=== PATIENT | male | born 1965 | race Caucasian/White ===

== ENCOUNTER 2021-10-17 11:52 | Emergency (ER) | payer OTHER, SELFPAY ==
--- NOTE | 2021-10-17 12:00 | ED.OVERDOSE ---
HPI - Overdose General Chief Complaint: Overdose Stated Complaint: OVERDOSE Time Seen by Provider: 10/17/21 11:58 Source: EMS Mode of arrival: EMS Limitations: language barrier History of Present Illness HPI Narrative: patient found unresponsive after fentanyl crack and cocaine. Bystanders gave him intranasal narcan x 3. complaint: accidental overdose Related Data Allergies Allergy/AdvReac Type Severity Reaction Status Date / Time No Known Allergies Allergy Unverified 12/04/19 17:10 Review of Systems Constitutional: Constitutional: Reports no additional constitutional complaints Eyes: Eyes: Reports no additional eye complaints ENT: Denies dizziness Cardiovascular: Cardiovascular: Reports no additional cardiovascular complaints Respiratory: Respiratory: Reports as per HPI Gastrointestinal: Gastrointestinal: Reports no additional gastrointestinal complaints Musculoskeletal: Musculoskeletal: Reports no additional musculoskeletal complaints Integumentary/Breasts: Skin/Breast: Denies rash Neurologic: Reports system reviewed and no additional complaints, except as documented, Denies dizziness and Denies Sensory deficit (Neuro) Psychiatric: Psychiatric: Denies anxiety PMFSH Social History Social History Advance Directives: No Advance Directives Information Provided: No Physical Exam Vital Signs: Vital Signs: Last Vital Signs Pulse 88 10/17/21 12:02 Resp 14 10/17/21 12:02 BP 104/77 10/17/21 12:02 Pulse Ox 96 10/17/21 12:02 O2 Del Method 10/17/21 12:02 BMI result Body Mass Index 29.0 Const: Other: yawning with chills Nutritional Appearance: average body habitus Orientation/consciousness: oriented to person and patient oriented x3 Limitations: no limitations HEENT: Head: Yes normal to inspection Ears: external ears normal General nose exam: Normal external nose present Mouth: Normal oral and palatal mucosa present and oropharynx normal Throat: Yes posterior oropharynx normal Eyes: General: appearance normal, both eyes and all related structures Neck: Other: supple Neck: Yes normal visual inspection Chest: Chest palpation & inspection: normal inspection of the chest Resp: Auscultation: clear to auscultation bilaterally Cardio: Jugular venous distension: no JVD Rate: regular rate Rhythm: regular rhythm Heart sounds: S1 normal heart sound present and S2 normal heart sound present GI: Inspection: Yes normal to inspection Palpation (GI): Soft to palpation, nontender and No hepatosplenomegaly present Auscultation: normal bowel sounds : General: Yes no CVA tenderness Back/Spine/Pelvis: Back: no CVA tenderness Skin: General skin exam: no rashes or lesions noted Neuro: General: oriented to person and patient oriented x3 Cranial nerves: Yes CN's II-XII intact bilaterally Motor exam (neuro): 5/5 motor strength present throughout Sensory Exam: No Sensory deficit (Neuro) Extrem: General: Yes normal to inspection Psych: Appearance: grossly normal Course Reevaluation(s) Reevaluation #1: Seen and refused detox, will dc home Time: 15:31 Discharge Plan Discharge Clinical Impression: Drug overdose Patient Disposition: Home, Self-Care Instructions: Adult Overdose (ED) Additional Instructions: follow up with detox and stop using narcotics Referrals: Dell Curtis MD [Primary Care Provider] - 1 week
[2021-10-17 12:02] VITALS: BP 104/77; BP 118/78; PULSE 100; PULSE 88; RESP 14; O2SAT 96; BMI 29.0
--- NOTE | 2021-10-17 12:19 | PC.NURSE ---
Security called to bedside. Pt changed to hospital gown. Belongings sent to .
--- NOTE | 2021-10-17 16:11 | HO.SUDE ---
This specification writer met w/ pt. Pt alert and oriented. Pt states lives in [place], att[facility] in [place], has not been to MTD maintenance in 3 days. Pt states was on 26mg daily. Pt states today used IV 2 bags heroin, 1 bag DIANA. Pt states treatment history of detox many times, Suboxone for 4 years. Pt states has been using since 20 years old, w/ 40 overdoses in the past. Pt states sometimes received narcan during overdose, typically does not go to hospital post overdose. Pt states is on prescription BZO from psychiatrist. This specification writer offered treatment options and resources, pt states not interested at this time. This specification writer and pt discussed the benefits of MTD maintenance. Pt states plans to f/u w/ methadone clinic tomorrow. Harm reduction, opiate overdose prevention, narcan training reviewed. Opportunity for questions. Pt verbalized understanding.
== END 2021-10-17 15:48 | disposition home or self-care (01) ==
PROVIDERS: Emergency Provider Emergency Medicine; PCP Internal Medicine
DX: T40.5X1A Poisoning by cocaine, accidental (unintentional), initial encounter (principal); F14.19 Cocaine abuse with unspecified cocaine-induced disorder; Y92.9 Unspecified place or not applicable
CPT/HCPCS: 99284

== ENCOUNTER 2022-01-20 14:43 | Emergency (ER) | payer OTHER, SELFPAY ==
--- NOTE | 2022-01-20 15:02 | PC.NURSE ---
[facility] called, declined case. #[id number]
--- NOTE | 2022-01-20 15:09 | ED_ITS ---
HPI - CPR General Chief Complaint: Cardiac Arrest/CPR Stated Complaint: CARDIAC ARREST,?OD Time Seen by Provider: 01/20/22 14:49 Source: EMS Mode of arrival: EMS Limitations: other (ongoing CPR) History of Present Illness HPI narrative: 56 yo male with known substance abuse found down behind a building unknown downtime - drug paraphernalia near him per EMS there was bystander CPR - asytole for duration of EMS call 35 min, intubated, no shocks advised, 3 to 4 doses of narcan given in field complaint: found unresponsive Onset (ago): unknown Place: street Bystander CPR performed: Yes AED applied by bystander/first aid director: No Shock advised: No Initial findings in the field: unresponsive, no pulse and other rhythm (asystole) ROSC in the field: No Associated injuries: No Associated symptoms: other (found with drug paraphernalia) Known history of: drug abuse Treatments prior to arrival: intubation, chest compressions and epinephrine mgs # (5) Related Data Allergies Allergy/AdvReac Type Severity Reaction Status Date / Time No Known Allergies Allergy Unverified 12/04/19 17:10 Review of Systems Review of Systems: ROS unable to be obtained due to ongoing CPR [facility] Past Medical History Medical History (Updated 01/20/22 @ 15:10 by Nadia Macias DO) Drug abuse Social History Social History (Updated 01/20/22 @ 15:11 by Nadia Macias DO) Patient Tobacco Use Status: Tobacco use Unknown Substance Use Type: Crack/Cocaine and Heroin Advance Directives: No Advance Directives Information Provided: No Physical Exam Vital Signs: Appearance: unresponsive, ongoing CPR, no response to pain Eyes: fixed dilated pupils ENT: Pharynx normal. Neck: Normal inspection. Neck supple. CVS: absent heart sounds, with compressions good femoral pulse felt Respiratory: No respiratory distress. Breath sounds normal. Abdomen: Soft and nontender. atraumatic Skin: Skin dusky and pale, scars noted on both UE Extremities: No lower extremity edema. Neuro: no response to pain, no movements, unresponsive Course Course Course Narrative: asystole for at least 35 minutes with EMS but unknown downtime - no ROSC in field, no cardiac activity on bedside US after 40 min of CPR at this time [place]uscitative [place] [id number] accepted to [facility] [id number] Reyna Carrillo MDM - Cardiac Arrest/CPR MDM Narrative Medical decision making narrative: 56 yo male with hx of substance abuse here with cardiac arrest x at least 40 minutes without ROSC and remains in asystole - cycle of CPR in ED, BS 60, no cardiac activity on bedside US, asystole for 40 minutes, given prolonged cardiac arrest without response - time of 1448pm. Will call ME given concern for overdose. Procedures Procedure Narrative Procedure Narrative: bedside US 1448 - absent cardiac activity noted on bedside US, asystole on monitor Discharge Plan Discharge Clinical Impression: Cardiac arrest Patient Disposition: Date/Time: 01/20/22 14:48
--- NOTE | 2022-01-20 15:44 | PC.NURSE ---
@[phone] CALL PLACED TO [facility] [phone] @ THE REQUEST OF DR JOSIAH RAMIREZ ANSWERS, TAKES CALL BACK INFO AND ASSURE ME SOMEONE WILL CALL BACK SOON @[phone] JAMES FROM [facility] CALLS US BACK, TAKES PT INFO THEN ASKS TO SPEAK WITH DR JOSIAH RAHMAN TAKES OVER CALL RIGHT AWAY
--- NOTE | 2022-01-20 16:05 | PC.NURSE ---
TIME OF 1880 UT CASE # [id number]
--- NOTE | 2022-01-20 16:09 | PC.NURSE ---
TO [facility] NOW WITH [facility]
[2022-01-23 07:43] LABS: Glucose, Whole Blood 60 mg/dL (60-115)
--- NOTE | 2022-01-23 12:43 | PC.NURSE ---
Visitor for this patient arrived in the ED looking for him at 1200. Madelin Bates ([phone]) stated she is his . Was unaware he had on Sunday. No next of kin per patient listed in his medical record. Pt belongings released to Ms. Bates. Tarun from Patient Experience assisting Ms. Bates in contacting the Fruit Receiver's office to ascertain his whereabouts currently.
== END 2022-01-20 16:09 | disposition expired ==
LOC: HO.ED 15:25
PROVIDERS: Emergency Provider Emergency Medicine
DX: I46.9 Cardiac arrest, cause unspecified (principal); F11.10 Opioid abuse, uncomplicated; F14.10 Cocaine abuse, uncomplicated
CPT/HCPCS: 82947; 96374; 99285; J0171